=== PATIENT | male | born 1995 | race Caucasian/White ===

== ENCOUNTER 2019-08-22 03:33 | Emergency (ER) | payer SELFPAY ==
[2019-08-22 03:38] VITALS: BP 133/71; PULSE 90; RESP 16; TEMP 36.6; O2SAT 100
--- NOTE | 2019-08-22 03:54 | ED.GENADULT ---
HPI - General Adult General Chief complaint: Nausea/Vomiting/Diarrhea Stated complaint: vomiting Time Seen by Provider: 08/22/19 03:39 Source: patient Mode of arrival: ambulatory Limitations: no limitations History of Present Illness HPI narrative: Patient is a 23-year-old male who presents for evaluation of nausea and vomiting. Patient reports that he started to have nausea with recurrent episodes of emesis approximately 10 PM yesterday evening. Patient denies any abdominal pain, but reported that while he was vomiting he was having some pain in the upper right side of his belly which is now gone. Patient denies fever, chills or diarrhea. Patient states that he got two pizzas and [place] onion dip from the [employer] store this evening. Otherwise, no other food indiscretions. No sick contacts at home. Patient reports alcohol intake yesterday. No history of abdominal surgeries. No fever. No dysuria or hematuria. No cough or shortness of breath. Related Data Allergies Allergy/AdvReac Type Severity Reaction Status Date / Time acetaminophen [From Tylenol] Allergy Vomiting Verified 08/22/19 03:40 Review of Systems Review of Systems: Narrative: CONSTITUTIONAL: Denies fever, chills, or sweats. ENT: Denies rhinorrhea, congestion, sore throat, or otalgia. CARDIOVASCULAR: Denies chest pain, palpitations, or edema. RESPIRATORY: Denies cough or dyspnea. GASTROINTESTINAL: Reports right-sided abdominal pain, now resolved, reports nausea, vomiting, denies diarrhea GENITOURINARY: Denies dysuria or hematuria. SKIN: Denies rash or itching. MUSCULOSKELETAL: Denies back pain, joint pain, or myalgia. NEUROLOGIC: Denies headache, numbness, or weakness. [facility] Social History Social History (Updated 08/22/19 @ 04:12 by Kristen Pena MD) Smoking status: Never smoker Alcohol intake: current Drinks per week: 5 Substance use: never Gender identity (if verbalized by the patient): Male Exam Narrative: Exam Narrative: GENERAL: Well-appearing, well-nourished, and in no acute distress. HEAD: Normocephalic, atraumatic. EYES: PERRLA and EOMI. ENT: Nares clear, no rhinorrhea or epistaxis. Mucous membranes moist. NECK: Supple. CHEST: Clear to auscultation. No respiratory distress. HEART: Regular rate and rhythm. No murmur heard. Normal peripheral pulses. ABDOMEN: Soft, nontender, no right lower quadrant tenderness, no right upper quadrant tenderness, no flank tenderness, abdomen is nondistended, normal active bowel sounds. EXTREMITIES: Normal range of motion. No edema. SKIN: Warm, dry, no rash. NEURO: No focal deficits. Alert and oriented x3 Course Course Emergency Course: Patient presented to the emergency department for evaluation of vomiting. At the time of initial assessment, ABCs are intact and vital signs are stable. Physical exam shows no abdominal pain. Patient without chest pain, shortness of breath, cough, right lower quadrant abdominal pain or back pain. Laboratory results are reassuring. Patient does have a mild leukocytosis, we know that can be seen in the setting of vomiting such as with gastroenteritis. Patient without any diarrhea at this point. At the time of repeat abdominal exam, patient continued to have no abdominal pain. No focal right lower quadrant pain or guarding. I considered appendicitis, but due to no fever, tachycardia, no focal right lower quadrant pain, I do not suspect this diagnosis. It could just be early appendicitis, early gastroenteritis, and for now as patient is tolerating oral intake without pain, I am comfortable with discharge home, gave him strict return precautions to return within the next 12 to 24 hours if he experiences return of emesis or abdominal pain. Patient was then discharged home. Vital Signs Vital signs: Vital Signs Temperature 36.6 C 08/22/19 03:38 Pulse Rate 90 08/22/19 03:38 Respiratory Rate 16 08/22/19 03:38 Blood Pressure 133/71 08/22/19 03:38 Pulse Oximetry 100
[2019-08-22] MEDS: ONDANSETRON INJ 4 MG/2 ML VIAL IV PUSH (03:56)
[2019-08-22] MEDS: SODIUM CHLORIDE 0.9% IV 2,000 ML 999 ML IV CONT (03:56)
[2019-08-22 04:15] LABS: Add Urine Microscopic? YES; Amorphous Sediment Urine Few; Appearance Urine Cloudy (Clear); Bacteria Urine Trace /hpf; Bilirubin Urine Negative (Negative); Blood Urine Negative (Negative); Color Urine Yellow (Yellow); Glucose Urine UA Negative (Negative); Ketones Urine Negative (Negative); Leukocyte Esterase Ur Negative LEU/UL (Negative); Mucus Urine Rare /lpf; Nitrate Urine Negative (Negative); Protein Urine 1+ mg/dL (Negative); Specific Grav Ur 1.017 (1.001-1.035); Squamous Epithelial Cell Urine Rare /hpf (Few); Urobilinogen Urine Negative mg/dL (<2.0)
[2019-08-22 04:16] LABS: Basophils Percent Auto 0.3 % (0.2-1.2); Eosinophils Percent Auto 0.3 % (0-4.4); Hematocrit 42.3 % (42.0-52.0); Hemoglobin 14.2 g/dL (14.0-18.0); Immature Granulocyte Absolute 0.06 K/mm3 (0.00-0.031); Immature Granulocyte Percent A 0.5 % (0-0.5); Lymphocytes Absolute Auto 1.29 K/mm3 (0.9-3.2); Lymphocytes Percent Auto 11.1 % (18.3-44.2); Mean Corpuscular HGB Conc 33.6 g/dl (32-36); Mean Corpuscular Hemoglobin 30.1 pg (26-34); Mean Corpuscular Volume 89.8 fl (80-100); Mean Platelet Volume 9.9 fl (7.4-10.4); Monocytes Absolute Auto 0.4 K/mm3 (0.1-0.6); Monocytes Percent Auto 3.2 % (2.6-8.5); Neutrophils Absolute Auto 9.9 K/mm3 (1.3-6.7); Neutrophils Percent Auto 84.6 % (45.5-73.1); Platelet Count Result 183 k/mm3 (150-375); Red Blood Count 4.71 M/mm3 (4.6-6.20); Red Cell Distribution Width 13.3 % (11.5-14.5); White Blood Count 11.7 K/mm3 (4.5-10.0)
[2019-08-22 04:27] LABS: Alanine Aminotransferase 30 U/L (4-50); Albumin Level 4.6 g/dL (3.5-5.1); Alkaline Phosphatase 100 U/L (38-126); Aspartate Amino Transferase 29 U/L (17-59); Bilirubin,Total 0.4 mg/dL (0.2-1.3); Blood Urea Nitrogen 14 mg/dL (9-20); Calcium 9.3 mg/dL (8.4-10.2); Carbon Dioxide 26 mmol/L (22-30); Chloride 107 mmol/L (98-107); Estimated Glomerular Filt Rate > 60; Glucose 110 mg/dL (75-110); Lipase 62 U/L (23-300); Potassium 3.8 mmol/L (3.4-5.0); Sodium 141 mmol/L (137-145)
[2019-08-22 05:11] VITALS: BP 124/67; PULSE 76; RESP 19; TEMP 36.8; O2SAT 100
== END 2019-08-22 05:12 | disposition home or self-care (01) ==
PROVIDERS: Emergency Provider Emergency Medicine; PCP Pediatrics
DX: E86.0 Dehydration (principal); R11.2 Nausea with vomiting, unspecified
CPT/HCPCS: 36415; 80053; 81001; 83690; 85025; 96361; 96374; 99284; J2405; J7030